=== PATIENT | male | born 1985 | race Caucasian/White ===

== ENCOUNTER 2018-04-18 09:03 | Emergency (ER) | payer OTHER ==
[2018-04-18 09:11] VITALS: BP 108/66
--- NOTE | 2018-04-18 09:41 | EDPHY ---
H & P Smoking Status: Never smoked Time Seen by Provider: 04/18/18 09:13 HPI/ROS: CHIEF COMPLAINT: Tongue laceration HISTORY OF PRESENT ILLNESS: 33-year-old male presents emergency department with tongue laceration. The patient was in a hurry this morning and accidentally cut the underside of his tongue at home he thinks with his toothbrush. He states that the blood quite a bit he was having difficulty controlling the bleeding and presented to the emergency department for evaluation. Denies any other trauma or injury. Patient thinks his tetanus shot is current ROS: Denies dental injury, headache (Sandra Marques) Past Medical/Surgical History: Negative (Sandra Marques) Social History: Single and lives in [place] (Sandra Marques) Physical Exam: The patient is in no apparent distress. The patient has a partial laceration to the sublingual frenulum. There is no active bleeding currently. Teeth are in good repair. No pain with palpation along the mandible. (Sandra Marques) Constitutional: Initial Vital Signs Temperature (C) 36.3 C 04/18/18 09:10 Heart Rate 50 L 04/18/18 09:10 Respiratory Rate 16 04/18/18 09:10 Blood Pressure 108/66 04/18/18 09:10 O2 Sat (%) 97 04/18/18 09:10 O2 Delivery Mode Room Air Allergies/Adverse Reactions: No Known Allergies Allergy (Unverified 04/18/18 09:10) Home Medications: Medication Instructions Recorded NK [No Known Home Meds] 04/18/18 MDM/Departure - [facility] ED Course/Re-evaluation: 33-year-old male presents emergency department with laceration to the sublingual area of the tongue. There is no current active bleeding noted. The patient does report that he had difficulty controlling the bleeding. Small amount of Surgicel was placed on the lacerated area. I do not think sutures are indicated. Again no active bleeding. Given wound care precautions. (Sandra Marques) The patient was evaluated and managed by the physician leasing assistant. I have reviewed this chart and I agree with the findings and plan of care as documented , as indicated by my signature. I am the secondary supervising physician. ( Lisbet Taylor) - Depart Disposition: Home, Routine, Self-Care Clinical Impression: Laceration of tongue Qualifiers: Encounter type: initial encounter Qualified Code(s): S01.512A - Laceration without foreign body of oral cavity, initial encounter Condition: Good Instructions: Laceration (ED), Acute Wounds (ED) Additional Instructions: Return to the emergency department if he developed recurring bleeding or if you feel worse in any way. Referrals: Matthew Luna DO [Doctor of Osteopathy] - 2-3 days, if not improved (Primary care provider bone puller )
== END 2018-04-18 09:40 | disposition home or self-care (01) ==
DX: S01.512A Laceration without foreign body of oral cavity, initial encounter (principal); W26.8XXA Contact with other sharp object(s), not elsewhere classified, initial encounter; Y93.E8 Activity, other personal hygiene; Y99.8 Other external cause status